=== PATIENT | female | born 1995 | race Caucasian/White ===

== ENCOUNTER 2016-08-27 08:30 | Emergency (ER) | payer OTHER, SELFPAY ==
[~2016-08-27 08:30] MED LIST: ACET50TA PO; COLA100C PO; IBUP-1114 PO; No home meds; PRENTAB9 PO; PROTPAK PO; PROZ10CA7 PO; SLEE1TAB PO; TRAZ50TA4 PO; VIST50CA PO
[2016-08-27] MEDS ORDERED: DICYCLOMINE INJ 20MG/2ML (J0500) IM ONE (09:45)
[2016-08-27] MEDS ORDERED: NS 1,000 ML IV ONE (09:45)
[2016-08-27] MEDS ORDERED: METOCLOPRAMIDE INJ 10MG/2ML VIAL (J2765) IV ONE (09:45)
[2016-08-27 10:11] LABS: BASO % 0.2 % (0.0-1.0); EOS # 0.1 K/mm3 (0.0-0.50); EOS % 0.7 % (0.0-3.0); LARGE UNSTAINED CELL # 0.2 K/mm3 (0.0-0.4); LYMPH # 1.6 K/mm3 (1.5-6.5); LYMPH % 9.3 % (24.0-44.0); MEAN CORPUSCULAR HEMOGLOBIN 28.7 pg (27.0-33.0); MEAN CORPUSCULAR HGB CONC 34.5 g/dl (32.0-36.5); MEAN CORPUSCULAR VOLUME 83.2 fl (80.0-96.0); MONO # 0.4 K/mm3 (0.0-0.8); MONO % 2.5 % (0.0-5.0); NEUTROPHILS # 15.1 K/mm3 (1.8-7.7); NEUTROPHILS % 86.3 % (36.0-66.0); PLATELET COUNT, AUTOMATED 281 k/mm3 (150-450); RED CELL DISTRIBUTION WIDTH 14.8 % (11.5-14.5); WHITE BLOOD COUNT 17.4 K/mm3 (4.0-10.0)
[2016-08-27 10:24] LABS: CONTROL LINE HCG INT CTR LINE PRESENT
[2016-08-27 10:32] LABS: ALBUMIN/GLOBULIN RATIO 1.56 (1.00-1.93); ALKALINE PHOSPHATASE 90 U/L (45-117); ALT/SGPT 22 U/L (12-78); AMYLASE 33 U/L (25-115); ANION GAP 12 MEQ/L (8-16); AST/SGOT 13 U/L (15-37); BILIRUBIN,DIRECT 0.3 MG/DL (0.0-0.2); BILIRUBIN,TOTAL 1.5 MG/DL (0.2-1.0); BLOOD UREA NITROGEN 22 MG/DL (7-18); CALCIUM LEVEL 8.9 MG/DL (8.5-10.1); CARBON DIOXIDE LEVEL 20 MEQ/L (21-32); CHLORIDE LEVEL 106 MEQ/L (98-107); CREATININE FOR GFR 1.19 MG/DL (0.55-1.02); GLOMERULAR FILTRATION RATE > 60.0 (>60); GLUCOSE, FASTING 191 MG/DL (70-105); POTASSIUM SERUM 4.2 MEQ/L (3.5-5.1); SODIUM LEVEL 138 MEQ/L (136-145); TOTAL PROTEIN 8.2 GM/DL (6.4-8.2)
[2016-08-27] MEDS ORDERED: MORPHINE 4 MG/ML 1ML SYRINGE IV ONE ×2 (10:45→12:30)
[2016-08-27] MEDS ORDERED: metroNIDAZOLE (FLAGYL) 500 MG TAB PO ONE (11:45)
--- NOTE | 2016-08-27 12:12 | REP ---
ABDOMINAL SERIES: Three views. HISTORY: Lower abdominal pain. FINDINGS: PA chest radiograph is unremarkable. There is no evidence of infiltrate or free subdiaphragmatic air. There is a levoconvex curve in the thoracic spine. Supine and upright views of the abdomen demonstrate a dextroconvex scoliotic curve of the lumbar spine. The bowel gas pattern is unremarkable. No large or small bowel dilation is seen. No mass or organomegaly is seen. Some asymmetry is noted at the symphysis pubis at the bottom edge of the field of view. This is felt to be most likely developmental. IMPRESSION: Mild thoracolumbar scoliosis otherwise negative abdominal series. Signed by Michael Lutz MD 08/27/2016 02:29 P
[2016-08-27] MEDS ORDERED: ONDANSETRON 4MG/2ML VIAL (J2405) IV ONE (12:45)
[2016-08-27] MEDS ORDERED: FLAG500T PO (13:23)
[2016-08-27] MEDS ORDERED: ZOFR4TAB3 PO (13:23)
[2016-08-27] MEDS ORDERED: BENT20TA PO (13:46)
[2016-08-27 13:49] VITALS: BP 176/100
== END 2016-08-27 13:53 | disposition home or self-care (01) ==
LOC: M ED 10:44
DX: A04.7 Enterocolitis due to Clostridium difficile (principal)
CPT/HCPCS: 36415; 74022; 80048; 80076; 82150; 83690; 84703; 85025; 87507; 96372; 96374; 96375; 96376; 99283; J0500; J2405; J2765

== ENCOUNTER 2016-08-29 06:44 | Emergency (ER) | payer OTHER, SELFPAY ==
[~2016-08-29] VITALS: Ht 154.9 cm; Wt 63.5 kg
[~2016-08-29 06:44] MED LIST changes: +BENT20TA PO; +FLAG500T PO; +ZOFR4TAB3 PO
[2016-08-29] MEDS ORDERED: CIPROFLOXACIN 400 MG in APPROPRIATE DILUENT 1 EA IV ONE (07:30)
[2016-08-29] MEDS ORDERED: KETOROLAC 30 MG/ML VIAL (J1885) IV ONE (07:30)
[2016-08-29] MEDS ORDERED: METOCLOPRAMIDE INJ 10MG/2ML VIAL (J2765) IV ONE ×2 (07:30→09:00)
[2016-08-29] MEDS ORDERED: DICYCLOMINE INJ 20MG/2ML (J0500) IM ONE (07:30)
[2016-08-29] MEDS ORDERED: NS 1,000 ML IV ONE (07:30)
[2016-08-29 07:44] LABS: BASO % 0.2 % (0.0-1.0); EOS # 0.1 K/mm3 (0.0-0.50); LARGE UNSTAINED CELL # 0.1 K/mm3 (0.0-0.4); LARGE UNSTAINED CELL % 1.1 % (0.0-4.0); LYMPH # 2.3 K/mm3 (1.5-6.5); LYMPH % 19.2 % (24.0-44.0); MEAN CORPUSCULAR HEMOGLOBIN 28.9 pg (27.0-33.0); MEAN CORPUSCULAR HGB CONC 34.7 g/dl (32.0-36.5); MEAN CORPUSCULAR VOLUME 83.4 fl (80.0-96.0); MONO # 0.5 K/mm3 (0.0-0.8); MONO % 4.7 % (0.0-5.0); NEUTROPHILS # 8.4 K/mm3 (1.8-7.7); NEUTROPHILS % 73.7 % (36.0-66.0); PLATELET COUNT, AUTOMATED 236 k/mm3 (150-450); RED CELL DISTRIBUTION WIDTH 14.9 % (11.5-14.5); WHITE BLOOD COUNT 11.4 K/mm3 (4.0-10.0)
[2016-08-29 08:26] LABS: ALBUMIN 4.3 GM/DL (3.2-5.2); ALBUMIN/GLOBULIN RATIO 1.43 (1.00-1.93); ALKALINE PHOSPHATASE 73 U/L (45-117); ALT/SGPT 23 U/L (12-78); AMYLASE 34 U/L (25-115); ANION GAP 12 MEQ/L (8-16); AST/SGOT 15 U/L (15-37); BILIRUBIN,DIRECT 0.1 MG/DL (0.0-0.2); BILIRUBIN,TOTAL 0.3 MG/DL (0.2-1.0); BLOOD UREA NITROGEN 8 MG/DL (7-18); CALCIUM LEVEL 8.7 MG/DL (8.5-10.1); CARBON DIOXIDE LEVEL 22 MEQ/L (21-32); CHLORIDE LEVEL 107 MEQ/L (98-107); CREATININE FOR GFR 0.95 MG/DL (0.55-1.02); GLOMERULAR FILTRATION RATE > 60.0 (>60); GLUCOSE, FASTING 96 MG/DL (70-105); POTASSIUM SERUM 3.3 MEQ/L (3.5-5.1); SODIUM LEVEL 141 MEQ/L (136-145); TOTAL PROTEIN 7.3 GM/DL (6.4-8.2)
[2016-08-29] MEDS ORDERED: POTASSIUM CHLORIDE 10 MEQ SR TABLET PO ONE (09:00)
[2016-08-29] MEDS ORDERED: metroNIDAZOLE (FLAGYL) 500 MG TAB PO ONE (09:00)
[2016-08-29] MEDS ORDERED: MORPHINE 4 MG/ML 1ML SYRINGE IV ONE (09:00)
[2016-08-29] MEDS ORDERED: ONDANSETRON 4MG/2ML VIAL (J2405) IV ONE (09:15)
[2016-08-29] MEDS ORDERED: DICY10AM IM (10:27)
[2016-08-29] MEDS ORDERED: ZOFR4TAB3 PO (10:28)
[2016-08-29 10:40] VITALS: BP 134/88
== END 2016-08-29 10:44 | disposition home or self-care (01) ==
LOC: M ED 07:37
DX: A04.7 Enterocolitis due to Clostridium difficile (principal); R11.2 Nausea with vomiting, unspecified; R10.9 Unspecified abdominal pain
CPT/HCPCS: 80048; 80076; 82150; 83690; 85025; 86140; 96361; 96365; 96366; 96372; 96375; 99282; J0500; J0744; J1885; J2405; J2765

== ENCOUNTER 2016-11-26 22:11 | Emergency (ER) | payer OTHER, SELFPAY ==
[~2016-11-26] VITALS: Ht 157.5 cm; Wt 65.8 kg
[~2016-11-26 22:11] MED LIST changes: -COLA100C PO; +COLA100C3 PO; +DICY10AM IM
[2016-11-26] MEDS ORDERED: NS 1,000 ML IV ONE (23:45)
[2016-11-26] MEDS ORDERED: ONDANSETRON 4MG/2ML VIAL (J2405) IV ONE (23:45)
[2016-11-27 00:51] LABS: BASO % 0.2 % (0.0-1.0); EOS # 0.1 K/mm3 (0.0-0.50); EOS % 0.6 % (0.0-3.0); LARGE UNSTAINED CELL # 0.1 K/mm3 (0.0-0.4); LARGE UNSTAINED CELL % 0.5 % (0.0-4.0); LYMPH % 7.3 % (24.0-44.0); MEAN CORPUSCULAR HEMOGLOBIN 30.6 pg (27.0-33.0); MEAN CORPUSCULAR HGB CONC 34.5 g/dl (32.0-36.5); MEAN CORPUSCULAR VOLUME 88.7 fl (80.0-96.0); MONO # 0.2 K/mm3 (0.0-0.8); MONO % 1.5 % (0.0-5.0); NEUTROPHILS # 11.9 K/mm3 (1.8-7.7); PLATELET COUNT, AUTOMATED 234 k/mm3 (150-450); RED CELL DISTRIBUTION WIDTH 12.9 % (11.5-14.5); WHITE BLOOD COUNT 13.2 K/mm3 (4.0-10.0)
[2016-11-27 01:17] LABS: ALBUMIN 4.3 GM/DL (3.2-5.2); ALBUMIN/GLOBULIN RATIO 1.39 (1.00-1.93); ALKALINE PHOSPHATASE 76 U/L (45-117); ALT/SGPT 21 U/L (12-78); ANION GAP 6 MEQ/L (8-16); AST/SGOT 9 U/L (15-37); BILIRUBIN,DIRECT 0.1 MG/DL (0.0-0.2); BILIRUBIN,TOTAL 0.6 MG/DL (0.2-1.0); BLOOD UREA NITROGEN 10 MG/DL (7-18); CALCIUM LEVEL 9.4 MG/DL (8.5-10.1); CARBON DIOXIDE LEVEL 27 MEQ/L (21-32); CHLORIDE LEVEL 105 MEQ/L (98-107); CONTROL LINE HCG INT CTR LINE PRESENT; CREATININE FOR GFR 0.84 MG/DL (0.55-1.02); GLOMERULAR FILTRATION RATE > 60.0 (>60); GLUCOSE, FASTING 137 MG/DL (70-105); POTASSIUM SERUM 4.2 MEQ/L (3.5-5.1); SODIUM LEVEL 138 MEQ/L (136-145); TOTAL PROTEIN 7.4 GM/DL (6.4-8.2)
--- NOTE | 2016-11-27 01:30 | REPUSA ---
CLINICAL HISTORY: RUQ pain. TECHNIQUE: Realtime sonographic images were obtained in multiple projections. COMMENTS: The visualized liver is of uniform echo texture without evidence of mass or defect. There is no intra or extrahepatic biliary ductal dilatation. The common bile duct measures 3.4 mm. The gallbladder is physiologically distended without evidence of calculi. The gallbladder wall is not thickened measuri ng 2 mm and there is no pericholecystic fluid. The right kidney measures 10.7x6.1x4.1 cm. The visualized portions of the pancreas are unremarkable. IMPRESSION: Normal study. No evidence of cholelithiasis or cholecystitis. Thank you for your kind referral of this patient.
[2016-11-27] MEDS ORDERED: ZOFR4TAB3 PO (02:47)
[2016-11-27 02:49] VITALS: BP 119/64
[2016-11-28] MEDS ORDERED: REGL10TA6 PO (13:42)
[2016-11-28] MEDS ORDERED: CIPR500T89 PO (13:42)
[2016-11-28] MEDS ORDERED: BENT20TA PO (13:42)
[2016-11-28] MEDS ORDERED: FLAG500T PO (13:42)
== END 2016-11-27 03:25 | disposition home or self-care (01) ==
LOC: M ED 23:35
DX: R11.2 Nausea with vomiting, unspecified (principal)

== ENCOUNTER 2016-11-28 10:06 | Emergency (ER) | payer OTHER ==
[~2016-11-28] VITALS: Ht 157.5 cm; Wt 68.0 kg
[2016-11-28] MEDS ORDERED: DICYCLOMINE INJ 20MG/2ML (J0500) IM ONE (11:00)
[2016-11-28] MEDS ORDERED: NS 1,000 ML IV ONE (11:00)
[2016-11-28] MEDS ORDERED: METOCLOPRAMIDE INJ 10MG/2ML VIAL (J2765) IV ONE (11:00)
[2016-11-28 11:34] LABS: BASO % 0.2 % (0.0-1.0); EOS % 0.5 % (0.0-3.0); LARGE UNSTAINED CELL # 0.1 K/mm3 (0.0-0.4); LARGE UNSTAINED CELL % 0.6 % (0.0-4.0); LYMPH # 1.6 K/mm3 (1.5-6.5); LYMPH % 15.9 % (24.0-44.0); MEAN CORPUSCULAR HGB CONC 34.3 g/dl (32.0-36.5); MEAN CORPUSCULAR VOLUME 87.5 fl (80.0-96.0); MONO # 0.3 K/mm3 (0.0-0.8); MONO % 3.1 % (0.0-5.0); NEUTROPHILS # 7.9 K/mm3 (1.8-7.7); NEUTROPHILS % 79.8 % (36.0-66.0); PLATELET COUNT, AUTOMATED 235 k/mm3 (150-450); WHITE BLOOD COUNT 9.8 K/mm3 (4.0-10.0)
[2016-11-28] MEDS ORDERED: GASTROGRAFIN SOLUTION 30ML (Q9963) As Ordered ONE (11:40)
[2016-11-28 11:55] LABS: ALBUMIN 4.1 GM/DL (3.2-5.2); ALBUMIN/GLOBULIN RATIO 1.32 (1.00-1.93); ALKALINE PHOSPHATASE 67 U/L (45-117); ALT/SGPT 21 U/L (12-78); AMYLASE 43 U/L (25-115); ANION GAP 8 MEQ/L (8-16); AST/SGOT 10 U/L (15-37); BILIRUBIN,DIRECT < 0.1 MG/DL (0.0-0.2); BILIRUBIN,TOTAL 0.5 MG/DL (0.2-1.0); BLOOD UREA NITROGEN 8 MG/DL (7-18); CALCIUM LEVEL 8.9 MG/DL (8.5-10.1); CARBON DIOXIDE LEVEL 23 MEQ/L (21-32); CHLORIDE LEVEL 107 MEQ/L (98-107); CREATININE FOR GFR 0.83 MG/DL (0.55-1.02); GLOMERULAR FILTRATION RATE > 60.0 (>60); GLUCOSE, FASTING 114 MG/DL (70-105); POTASSIUM SERUM 3.4 MEQ/L (3.5-5.1); SODIUM LEVEL 138 MEQ/L (136-145); TOTAL PROTEIN 7.2 GM/DL (6.4-8.2)
[2016-11-28] MEDS ORDERED: GASTROGRAFIN SOLUTION 30ML (Q9963) PO ONE (12:00)
[2016-11-28] MEDS ORDERED: TRIMETHOBENZAMIDE HCL INJ 200 MG/2 ML VIAL (J3250) IM ONE (12:00)
[2016-11-28] MEDS ORDERED: ISOVUE-370 76% 100ML VIAL (Q9967) As Ordered ONE (12:54)
--- NOTE | 2016-11-28 13:29 | REP ---
CT abdomen and pelvis with IV and oral contrast: There are no comparisons. The visualized lung junior are unremarkable. The hepatic parenchyma is homogeneous and unremarkable. There is no cholelithiasis. There is questionably pericholecystic fluid. However, the gallbladder wall does not appear thickened. This may represent acalculous cholecystitis. Correlation with clinical findings is recommended. The pancreas and spleen are unremarkable. The adrenals, kidneys and abdominal aorta are unremarkable. There is no bowel distension. However, there is mild wall thickening of the transverse colon and descending colon and questionable wall thickening of the small bowel. These findings are compatible with enteritis and colitis. There is no adenopathy or ascites. Pelvis: The appendix is not identified, however there is no pericecal inflammation or abscess. There is no pelvic adenopathy . There is a right adnexal 2.2 cm cyst. The uterus and left adnexa are unremarkable. Trace of ascites in the pelvis. Impression: Wall thickening of the transverse and descending colon compatible with colitis. Mild wall thickening of the small bowel, nonspecific, but compatible with enteritis. Questionable small amount of pericholecystic fluid. There is a trace of ascites in the pelvis. There is a 2.2 cm right adnexal cyst. No bowel distension or obstruction. Signed by Luciano Fisher MD 11/28/2016 01:19 P
[2016-11-28] MEDS ORDERED: REGL10TA6 PO (13:42)
[2016-11-28] MEDS ORDERED: CIPR500T89 PO (13:42)
[2016-11-28] MEDS ORDERED: FLAG500T PO (13:42)
[2016-11-28] MEDS ORDERED: BENT20TA PO (13:42)
--- NOTE | 2016-11-28 13:54 | ED PDOC ---
Post-Departure Follow-Up AT THIS TIME, WENT IN WITH NURSING STAFF TO GIVE DISCHARGE INSTRUCTIONS TO PT. PT WAS SLEEPING, WOKE EASILY TO SPOKEN VOICE, STATES HER STOMACH IS STILL UPSET AND WANTS ANOTHER BAG OF IV FLUIDS PRIOR TO DISCHARGE. ADVISED THAT THIS IS NOT NECESSARY AT THIS TIME HER LABS, VITALS AND URINE SHOW NO SIGNS OF DEHYDRATION. DISCHARGE EXPLAINED TO PT AND PAPERS GIVEN AT THIS TIME. SLOAN RAMIREZ PA-C Nov 28, 2016 13:54
[2016-11-28 13:56] VITALS: BP 137/99
--- NOTE | 2016-11-28 16:29 | ED PDOC ---
Post-Departure Follow-Up certified letter sent to pt re formal read of ct abd/p for fu Alana Del Angel MD Nov 28, 2016 16:29
== END 2016-11-28 13:59 | disposition home or self-care (01) ==
LOC: M ED 10:53
DX: K52.9 Noninfective gastroenteritis and colitis, unspecified (principal); N83.201 Unspecified ovarian cyst, right side

== ENCOUNTER → 2017-02-20 | Outpatient (CLI) | payer OTHER ==
[~2017-02-20] MED LIST changes: +CIPR-249 PO; -COLA100C3 PO; +COLA100C5 PO; +REGL10TA6 PO; +TRAZ50TA11 PO; -TRAZ50TA4 PO
[2017-02-20 10:42] LABS: MEAN CORPUSCULAR HEMOGLOBIN 30.4 pg (27.0-33.0); MEAN CORPUSCULAR HGB CONC 34.4 g/dl (32.0-36.5); MEAN CORPUSCULAR VOLUME 88.2 fl (80.0-96.0); RED CELL DISTRIBUTION WIDTH 12.4 % (11.5-14.5); WHITE BLOOD COUNT 6.3 K/mm3 (4.0-10.0)
[2017-02-20 11:15] LABS: ALBUMIN 3.9 GM/DL (3.2-5.2); ALKALINE PHOSPHATASE 68 U/L (45-117); ALT/SGPT 21 U/L (12-78); ANION GAP 6 MEQ/L (8-16); AST/SGOT 8 U/L (15-37); BILIRUBIN,TOTAL 0.2 MG/DL (0.2-1.0); BLOOD UREA NITROGEN 8 MG/DL (7-18); CALCIUM LEVEL 9.1 MG/DL (8.5-10.1); CARBON DIOXIDE LEVEL 28 MEQ/L (21-32); CHLORIDE LEVEL 106 MEQ/L (98-107); CHOLESTEROL LEVEL 157 MG/DL (<200); CREATININE FOR GFR 0.81 MG/DL (0.55-1.02); GLOMERULAR FILTRATION RATE > 60.0 (>60); GLUCOSE, FASTING 77 MG/DL (70-105); PERCENT SATURATION 16.8 % (13.2-45.0); POTASSIUM SERUM 4.9 MEQ/L (3.5-5.1); SODIUM LEVEL 140 MEQ/L (136-145); TOTAL IRON BINDING CAPACITY 303 UG/DL (250-450); TOTAL PROTEIN 6.9 GM/DL (6.4-8.2); TRIGLYCERIDES LEVEL 65 MG/DL (<150)
== END ==
LOC: M LAB 09:37
PROVIDERS: ATTEND Family Medicine
DX: D64.9 Anemia, unspecified (principal); R53.83 Other fatigue

== ENCOUNTER → 2017-05-29 | Outpatient (CLI) | payer OTHER | LOC: M LAB 11:41 | PROVIDERS: ATTEND Surgery | DX: R19.7 Diarrhea, unspecified (principal) ==